=== PATIENT | female | born 1970 | race Caucasian/White ===

== ENCOUNTER 2018-08-25 15:54 | Emergency (ER) | payer OTHER ==
[~2018-08-25] VITALS: Ht 177.8 cm; Wt 72.6 kg
[2018-08-25] MEDS ORDERED: ONDANSETRON PF 4 MG/2 ML VIAL. ONE (16:13)
[2018-08-25] MEDS ORDERED: MORPHINE SULFATE 10 MG/ML VIAL. IV ONE ×2 (16:15→17:15)
[2018-08-25] MEDS ORDERED: DIPHTH,PERTUSS(ACELL),TET TOX 0.5 ML DISP.SYRIN. VAX IM ONE (16:15)
[2018-08-25] MEDS ORDERED: BUPIVACAINE MPF 0.5% 30 ML VIAL. INJ ONE ×2 (16:15→18:30)
--- NOTE | 2018-08-25 17:02 | RAD ---
Three-view right hand dated 08/25/2018. No comparison available. Clinical data indication: Pain after injury. FINDINGS: Three-view right hand show comminuted fracture of the distal phalanx index finger. There is associated laceration that extends to the distal tuft with small amount of soft tissue gas. Fracture lines extend to the articular surface at the base of the distal phalanx. No additional fractures are seen. Alignment anatomic. IMPRESSION: Comminuted intra-articular open fracture of the distal phalanx index finger. Electronically signed by: Jeff Holland MD (08/25/2018 4:59 PM) [facility] [place]
[2018-08-25] MEDS ORDERED: cefTRIAXone IV Push 1 GM VIAL. IVP ONE (17:15)
--- NOTE | 2018-08-25 18:19 | PHYS DOC ---
Past Medical History Past Medical History: No Pertinent History (ZAK DOE APRN) Alcohol Use: None Drug Use: None (ZAK DOE APRN) Adult General Chief Complaint Chief Complaint: LACERATION/AVULSION HPI HPI Patient is a 48 year old female who presents to the ED today with right index finger laceration. Patient was mowing with with a tractor a tree branch fell her finger was caught by it. She is right-handed. (ZAK DOE APRN) Review of Systems Review of Systems Constitutional: Denies fever or chills [] Musculoskeletal: Right index finger laceration Neurologic: Denies headache, focal weakness or sensory changes [] Endocrine: Denies polyuria or polydipsia [] All other systems were reviewed and found to be within normal limits, except as documented in this note. (ZAK DOE APRN) Current Medications Current Medications Current Medications Medications (Trade) Dose Ordered Sig/Madelyn Start Time Stop Time Status Last Admin Dose Admin Bupivacaine HCl (Sensorcaine Mpf 0.5%) 30 ml 1X ONCE 08/25/18 18:30 08/25/18 18:31 Cancel Ceftriaxone Sodium (Rocephin) 1 gm 1X ONCE 08/25/18 17:15 08/25/18 17:16 DC 08/25/18 17:07 1 GM Diphtheria/ Tetanus/Acell Pertussis (Boostrix) 0.5 ml ONCE ONCE 08/25/18 16:15 08/25/18 16:16 DC 08/25/18 16:17 0.5 ML Morphine Sulfate (Morphine Sulfate) 5 mg 1X ONCE 08/25/18 17:15 08/25/18 17:16 DC 08/25/18 17:07 5 MG Ondansetron HCl (Zofran) 4 mg STK-MED ONCE 08/25/18 16:13 08/25/18 16:14 DC (JEFF HUMPHREYS DO) Allergies Allergies Allergies Coded Allergies Type Severity Reaction Last Updated Verified No Known Drug Allergies 03/07/13 No (JEFF HUMPHREYS DO) Physical Exam Physical Exam Constitutional: Well developed, well nourished, no acute distress, non-toxic appearance. [] Skin: see extremity Extremities: Right index finger ventral aspect distal phalanx with an open deep laceration roughly 6 cm there, hard to evaluate for any tendon injury but appears to be none. Patient able to flex and extend the finger at the MIP and PIP joint. Slightly Limited range of motion of the DIP joint. There is subungual hematoma noted on the right index finger nailbed. Adequate radius sensation to the right index finger. +2 right radial pulse. Cap refill less than 2 seconds the right index finger. There is a superficial laceration to the right middle finger mid phalanx approximately one centimeters. No obvious tendon involvement. Full range of motion to the right index finger MIP PIP and DIP joints. Adequate radial and ulnar sensation to the right index finger. +2 right radial pulse. Cap refill less than 2 seconds the right index finger. Neurologic: Alert and oriented X 3, normal motor function, normal sensory function, no focal deficits noted. [] Psychologic: Affect normal, judgement normal, mood normal. [] (ZAK DOE APRN) Current Patient Data Vital Signs Vital Signs Date Time Temp Pulse Resp B/P (MAP) Pulse Ox O2 Delivery O2 Flow Rate FiO2 08/25/18 19:03 74 18 127/80 (96) 98 Room Air 08/25/18 15:59 98.1 98.1 (JEFF HUMPHREYS DO) EKG EKG [] (ZAK DOE APRN) Radiology/Procedures Radiology/Procedures []PROCEDURE: HAND RIGHT 3V Three-view right hand dated 08/25/2018. No comparison available. Clinical data indication: Pain after injury. FINDINGS: Three-view right hand show comminuted fracture of the distal phalanx index finger. There is associated laceration that extends to the distal tuft with small amount of soft tissue gas. Fracture lines extend to the articular surface at the base of the distal phalanx. No additional fractures are seen. Alignment anatomic. IMPRESSION: Comminuted intra-articular open fracture of the distal phalanx index finger. Electronically signed by: Jeff Holland MD (08/25/2018 4:59 PM) [facility] [place] DICTATED and SIGNED BY: JEFF HOLLAND MD DATE: 08/25/18 0378 (ZAK DOE APRN) Course & Med Decision Making Course & Med Decision Making Pertinent Labs and Imaging studies reviewed. (See chart for details) This is a 48-year-old female patient who presents to the ED today with a deep laceration to the right index finger. Right hand x-rays interpreted by radiologist is noted for comminuted intra-articular open fracture of the distal phalanx index finger. Patient was given tetanus and Rocephin in the ED. Consulted with at who accepted patient for admission Off note patient is related to Dr. Holloway teacher lip reading who called and i spoke to him. Right index finger digital block was performed by me successfully. The finger was cleaned with 500 ML of normal saline. The finger was covered with nonstick dressing, gauze and splinted by me. Neurovascular exam intact post splinting. Transferred to [facility]. Family will take patient (ZAK DOE APRN) Dragon Disclaimer Dragon Disclaimer This electronic medical record was generated, in whole or in part, using a voice recognition dictation system. (ZAK DOE APRN) Departure Departure Impression: Primary Impression: Fracture of phalanx of right index finger Additional Impression: Laceration of index finger Disposition: 05 TRANSFER OTHER Condition: STABLE Referrals: AUREA HOLLOWAY MD (PCP) Patient Instructions: Finger Fracture, Fingertip Laceration Additional Instructions: You have right index finger open fracture. Please go to hospital admissions and they will admit you to bed [place] [id number]. Attending Signature Attending Signature I have reviewed the PA/LADLE WATCHER's note and plan of care. I was available for consultation as needed during the patient's visit in the emergency department. I agree with the clinical impression, plan, and disposition. (JEFF HUMPHREYS DO) Problem Qualifiers Primary Impression: Fracture of phalanx of right index finger Encounter type: initial encounter Fracture type: open Phalanx: distal Fracture alignment: nondisplaced Qualified Codes: S62.660B - Nondisplaced fracture of distal phalanx of right index finger, initial encounter for open fracture Additional Impression: Laceration of index finger Encounter type: initial encounter Damage to nail status: with damage Foreign body presence: without foreign body Laterality: right Qualified Codes: S61.310A - Laceration without foreign body of right index finger with damage to nail, initial encounter ZAK DOE APRN Aug 25, 2018 18:19 JEFF HUMPHREYS DO Aug 26, 2018 05:22
[2018-08-25 19:03] VITALS: BP 127/80
== END 2018-08-25 19:12 | disposition home or self-care (01) ==
LOC: ER 15:54
DX: S62.660B Nondisplaced fracture of distal phalanx of right index finger, initial encounter for open fracture (principal); W20.8XXA Other cause of strike by thrown, projected or falling object, initial encounter; Y93.89 Activity, other specified; Y92.89 Other specified places as the place of occurrence of the external cause; Y99.8 Other external cause status
CPT/HCPCS: 29130; 73130; 90471; 90715; 96374; 96375; 96376; 99285; J0696; J2270; 29125; 64450

== ENCOUNTER 2020-06-28 22:01 | Emergency (ER) | payer OTHER ==
[~2020-06-28] VITALS: Ht 170.2 cm; Wt 77.0 kg
[2020-06-28 22:08] VITALS: BP 148/94
[2020-06-28] MEDS ORDERED: LORA0.5T96 PO (22:18)
--- NOTE | 2020-06-28 22:18 | PHYS DOC ---
Past Medical History Past Medical History: No Pertinent History Smoking Status: Never Smoker Alcohol Use: None Drug Use: None General Adult EDM: Chief Complaint: ANXIETY/PANIC ATTACK HPI: HPI: Patient is a 50 year old [f__sex] who presents with [] Review of Systems: Review of Systems: Constitutional: Denies fever or chills. [] Eyes: Denies change in visual acuity. [] HENT: Denies nasal congestion or sore throat. [] Respiratory: Denies cough or shortness of breath. [] Cardiovascular: Denies chest pain or edema. [] GI: Denies abdominal pain, nausea, vomiting, bloody stools or diarrhea. [] : Denies dysuria. [] Musculoskeletal: Denies back pain or joint pain. [] Integument: Denies rash. [] Neurologic: Denies headache, focal weakness or sensory changes. [] Endocrine: Denies polyuria or polydipsia. [] Lymphatic: Denies swollen glands. [] Psychiatric: Denies depression or anxiety. [] Heart Score: Risk Factors: Risk Factors: DM, Current or recent (<one month) smoker, HTN, HLP, family history of CAD, obesity. Risk Scores: Score 0 - 3: 2.5% MACE over next 6 weeks - Discharge Home Score 4 - 6: 20.3% MACE over next 6 weeks - Admit for Clinical Observation Score 7 - 10: 72.7% MACE over next 6 weeks - Early Invasive Strategies Allergies: Allergies: Allergies Coded Allergies Type Severity Reaction Last Updated Verified No Known Drug Allergies 03/07/13 No Physical Exam: PE: Constitutional: Well developed, well nourished, no acute distress, non-toxic appearance. [] HENT: Normocephalic, atraumatic, bilateral external ears normal, oropharynx moist, no oral exudates, nose normal. [] Eyes: PERRLA, EOMI, conjunctiva normal, no discharge. [] Neck: Normal range of motion, no tenderness, supple, no stridor. [] Cardiovascular:Heart rate regular rhythm, no murmur [] Lungs & Thorax: Bilateral breath sounds clear to auscultation [] Abdomen: Bowel sounds normal, soft, no tenderness, no masses, no pulsatile masses. [] Skin: Warm, dry, no erythema, no rash. [] Back: No tenderness, no CVA tenderness. [] Extremities: No tenderness, no cyanosis, no clubbing, ROM intact, no edema. [] Neurologic: Alert and oriented X 3, normal motor function, normal sensory function, no focal deficits noted. [] Psychologic: Affect normal, judgement normal, mood normal. [] EKG: EKG: @2208 NSR at 75bpm, NO ST elevation, QRS 94ms, QT/QTc 392/440ms Radiology/Procedures: Radiology/Procedures: [] Course & Med Decision Making: Course & Med Decision Making Pertinent Labs and Imaging studies reviewed. (See chart for details) [] Dragon Disclaimer: Dragon Disclaimer: This electronic medical record was generated, in whole or in part, using a voice recognition dictation system. Departure Departure Impression: Primary Impression: Anxiety Additional Impression: Insomnia Qualified Codes: G47.00 - Insomnia, unspecified Disposition: HOME / SELF CARE / HOMELESS Condition: STABLE Referrals: AUREA FLORES MD (PCP) Patient Instructions: Anxiety and Panic Attacks, [id number], Insomnia Scripts Lorazepam (ATIVAN) 0.5 Mg Tablet 0.5 MG PO TID PRN for ANXIETY, #14 TAB Prov: KEENAN HUMPHREYS DO 06/28/20 KEENAN HUMPHREYS DO June 28, 2020 22:18
--- NOTE | 2020-06-28 22:18 | EKG ---
[facility] [address] [place] [address] Test Date: 2020-06-28 Test Time: 22:08:08 Pat Name: ALEXIS BLANCO Department: Room: Gender: F Ecommerce Analyst: : 1970 Requested By: KEENAN HUMPHREYS Order Number: [id number] Reading MD: Measurements Intervals [place] Rate: 75 P: 66 FL: 148 QRS: 59 QRSD: 94 T: 31 QT: 392 QTc: 440 Interpretive Statements SINUS RHYTHM NO SPECIFIC ECG ABNORMALITIES RI6.02 No previous ECG available for comparison
== END 2020-06-28 22:30 | disposition home or self-care (01) ==
LOC: ER 22:01
DX: F41.9 Anxiety disorder, unspecified (principal); G47.00 Insomnia, unspecified
CPT/HCPCS: 93005; 99283